=== PATIENT | female | born 1985 | race Caucasian/White ===

== ENCOUNTER 2020-03-12 14:46 | Emergency (ER) | payer OTHER, SELFPAY | END 2020-03-13 01:25 | disposition home or self-care (01) | LOC: EDH 14:46 | DX: J20.9 Acute bronchitis, unspecified (principal); Z20.828 Contact with and (suspected) exposure to other viral communicable diseases; Z98.890 Other specified postprocedural states | CPT/HCPCS: 71045; 81025; 93005; 99285; U0003 ==